=== PATIENT | male | born 1990 ===

== ENCOUNTER 2018-03-29 11:46 | Outpatient (REF) | payer MEDICAID, SELFPAY ==
[2018-03-29 21:24] LABS: Bilirubin Negative (Negative); Blood Negative (Negative); Clarity Clear; Glucose Negative (Negative); Ketones Negative (Negative); Leukocyte Esterase Negative (Negative); Nitrite Negative (Negative); Urobilinogen 0.2 EU/dL (Up TO 0.2)
[2018-03-29 21:30] LABS: HCT 44.2 % (40.0-50.0); HGB 15.9 g/dL (13.5-17.5); Mean Corpuscular Hemoglobin 31.1 pg (27.0-33.0); Mean Corpuscular Volume 86.5 fL (80-95); Mean Platelet Volume 10.9 fL (8.0-11.0); Platelet Count 249 x1000/uL (130-400); RBC 5.11 m/cumm (4.50-6.00); RBC Distribution Width 11.9 % (11.8-14.1); White Blood Cell Count 6.41 k/cumm (4.4-10.8)
[2018-03-29 21:33] LABS: ALT 31 U/L (12-78); AST 33 U/L (15-37); Albumin 4.1 g/dL (3.4-5.0); Alkaline Phosphatase 92 U/L (46-116); Anion Gap 10.1 mmol/L (3-11); BUN 14 mg/dL (7-18); Bilirubin, Total 0.5 mg/dL (0.2-1.0); CO2 28.9 mmol/L (21.0-32.0); CREATININE 1.04 mg/dL (0.70-1.30); Calcium 9.7 mg/dL (8.5-10.1); Chloride 101 mmol/L (98-107); Glucose 89 mg/dL (70-100); Potassium 4.2 mmol/L (3.5-5.1); Sodium 140 mmol/L (136-145); TSH 2.44 uIU/mL (0.358-3.74); Total Protein 7.6 g/dL (6.4-8.2)
[2018-03-29 21:47] LABS: Bacteria Negative HPF (Negative); C & S Indicated? No; Epithelial Cells Negative HPF (Negative); Mucus Trace (Negative); RBC Negative (0-2); WBC 0-2 HPF (0-5)
[2018-03-29 21:48] LABS: Crystals Rare Amorphous HPF (Negative)
== END 2018-03-29 12:06 ==
LOC: NCHCN 11:46
PROVIDERS: Visit Provider Physician Assistant Medical
DX: I10 Essential (primary) hypertension (principal)
CPT/HCPCS: 80053; 85027; 81003; 81015; 84443